=== PATIENT | female | born 1955 | race Caucasian/White ===

== ENCOUNTER → 2020-01-30 16:13 | Outpatient (BNVA) | payer BC, SELFPAY | PROVIDERS: Visit Provider Nurse Practitioner Family | DX: M25.521 Pain in right elbow (principal) | CPT/HCPCS: 73080 ==

== ENCOUNTER → 2020-02-06 10:06 | Outpatient (BNVA) | payer BC, SELFPAY | PROVIDERS: Visit Provider Nurse Practitioner Family | DX: E55.9 Vitamin D deficiency, unspecified (principal); E78.2 Mixed hyperlipidemia; I10 Essential (primary) hypertension; E53.8 Deficiency of other specified B group vitamins; Z86.39 Personal history of other endocrine, nutritional and metabolic disease | CPT/HCPCS: 80053; 80061; 81003; 82306; 82607; 82746; 83036; 84443; 84550; 85025 ==

== ENCOUNTER → 2020-02-13 09:07 | Outpatient (BNVA) | payer BC, SELFPAY | PROVIDERS: Visit Provider Nurse Practitioner Family | DX: R31.9 Hematuria, unspecified (principal) | CPT/HCPCS: 81003 ==

== ENCOUNTER → 2020-02-20 09:03 | Outpatient (BNVA) | payer BC, SELFPAY | PROVIDERS: Visit Provider Nurse Practitioner Family | DX: N39.0 Urinary tract infection, site not specified (principal); R31.9 Hematuria, unspecified | CPT/HCPCS: 81003 ==

== ENCOUNTER → 2020-02-27 09:16 | Outpatient (BNVA) | payer BC, SELFPAY | PROVIDERS: Visit Provider Nurse Practitioner Family | DX: N39.0 Urinary tract infection, site not specified (principal); R31.9 Hematuria, unspecified | CPT/HCPCS: 80053; 88112 ==

== ENCOUNTER → 2020-04-05 15:57 | Outpatient (BNVA) | payer BC, SELFPAY | PROVIDERS: Visit Provider Surgery | DX: Z20.828 Contact with and (suspected) exposure to other viral communicable diseases (principal) | CPT/HCPCS: 87635 ==

== ENCOUNTER 2020-04-10 08:15 | Day surgery (SDC) | payer BC, SELFPAY ==
[2020-04-08 09:51] VITALS: BMI 20.4
[2020-04-10 08:29] VITALS: BP 169/96; PULSE 81; RESP 18; TEMP 37.1; O2SAT 98
[2020-04-10] MEDS: sodium chloride 0.9% 1,000 ML 30 ML IV (08:43)
--- NOTE | 2020-04-10 10:18 | W.PM.OPSUD ---
Surgery/Procedure H&P Update DATE OF PROCEDURE: April 10, 2020 DATE H&P PERFORMED: 03/25/20 H&P UPDATE INFORMATION: I have reviewed H&P completed within last 30 days, I have examined patient prior to procedure and No changes to prior documentation PREOP DIAGNOSIS: Change in bowel habits PRIMARY INDICATION FOR PROCEDURE: The same PLANNED PROCEDURE: Operation Date: 04/10/20 09:00 Proposed Procedures p Colonoscopy 99748 R19.4(Not Applicable) - Hema Baltazar MD
--- NOTE | 2020-04-10 11:24 | ANES.PREANE2 ---
Pre-Anesthetic Assessment Pre-Anesthetic Assessment: Height/Weight: Height 1.63 m Weight 53.977 kg Temp Pulse Resp BP Pulse Ox 98.7 F 81 18 169/96 98 04/10/20 08:29 04/10/20 08:29 04/10/20 08:29 04/10/20 08:29 04/10/20 08:29 Preop Diagnosis: Change in bowel habits Proposed Procedure: Operation Date: 04/10/20 09:00 Proposed Procedures p Colonoscopy 84039 R19.4(Not Applicable) - Hema Baltazar MD Familial anesthetic complications: denies Was Beta Arianna taken within 24 hours: N/A Last intake: Intake Last Liquid Date 04/09/20 Last Liquid Time 22:00 Last Solid Date 04/08/20 Last Solid Time 18:00 Last Intake: 00:00 Social: Social History: Tobacco (1 ppd ) and No alcohol Pack years: 30 Exam: Pre-Anes Outpt Exam: alert, oriented x 3 and clear to auscultation bilaterally Airway: Submandibular: WNL Cervical ROM: WNL MP: 1 Pulmonary: Pulmonary: COPD CV/HEM: CV/HEM: Murmur (says she has a valve that regurg's 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 ) : Comments: blood in urine with no symptoms 1 month ago Hepatic: Hepatic: None reported GI: GI: None reported Metabolic: Comments: borderline hypoglycemia Musc/skel: Musc/skel: OA/DJD Neuropsych: Neuropsych: Anxiety (stress) Anesthetic Plan: ASA status: 2 Anesthesia: Anesthesia Evaluation and MAC Meds/Allergies Current Medications: Current Medications Generic Name Dose Route Start Last Admin Trade Name Riteshq PRN Reason Stop Dose Admin Sodium Chloride 1,000 mls @ 30 ml s/hr 04/10/20 08:30 04/10/20 08:43 Sodium Chloride 0.9% IV 04/11/20 08:29 30 mls/hr .Q24H RICCI Administration PFSH Anesthesia PFSH: Medical History B12 deficiency anemia Bursitis Essential hypertension H/O hypoglycemia H/O irritable bowel syndrome History of ulcer disease Mixed hyperlipidemia Urinary tract infection with hematuria Vitamin D deficiency Surgical History History of hysterectomy History of tubal ligation S/P cholecystectomy Family History Grandmother Cancer Mother Cancer Family/Other Cancer ovarian cancer Other Diabetes Denies family history of CAD (coronary artery disease) Anesthesia complication Bleeding disorder Social History Smoking and tobacco status: current every day smoker Alcohol intake: never Household members: spouse Marital status: Current occupational status: employed History of recent travel: No Data Anesthesia Cardiac Studies: No Data to Display
--- NOTE | 2020-04-10 11:49 | SUR.OPER ---
Clip placed at rectal polyp bx site
[2020-04-10 11:57] VITALS: BP 118/70; PULSE 81; RESP 16; TEMP 36.3; O2SAT 98
[2020-04-10 12:15] VITALS: BP 128/89; PULSE 85; RESP 18; O2SAT 99
--- NOTE | 2020-04-10 12:20 | ANE.PACU2 ---
Inpatient post-anesthesia follow up: Airway intact: Yes Vital signs: Temperature 97.3 F Pulse Rate 85 Respiratory Rate 18 Blood Pressure 128/89 Pulse Oximetry 99 Oxygen Delivery Me thod Room Air Oxygen Flow Rate Fraction of Inspir ed Oxygen Hydration adequate: Yes Nausea and vomiting: No Pain level: 1 Mental status: Baseline
== END 2020-04-10 12:23 | disposition home or self-care (01) ==
PROVIDERS: Visit Provider Surgery
PROC: 0DJD8ZZ Inspection of Lower Intestinal Tract, Via Natural or Artificial Opening Endoscopic (ICD-10-PCS; CPT 45378; principal; 2020-04-10 09:00)
DX: R19.4 Change in bowel habit (principal); D12.8 Benign neoplasm of rectum; J44.9 Chronic obstructive pulmonary disease, unspecified; M19.90 Unspecified osteoarthritis, unspecified site; F41.9 Anxiety disorder, unspecified; F17.210 Nicotine dependence, cigarettes, uncomplicated; I10 Essential (primary) hypertension; E78.2 Mixed hyperlipidemia
CPT/HCPCS: 12345; 45380; 88305; J2704; J7030

== ENCOUNTER → 2020-04-25 15:16 | Outpatient (BNVA) | payer BC, SELFPAY | PROVIDERS: Visit Provider Nurse Practitioner Family | DX: Z11.59 Encounter for screening for other viral diseases (principal) | CPT/HCPCS: 87635 ==

== ENCOUNTER → 2020-09-16 10:20 | Outpatient (BNVA) | payer SELFPAY | PROVIDERS: PCP Nurse Practitioner Family; Visit Provider Nurse Practitioner Family | DX: I10 Essential (primary) hypertension (principal); E78.2 Mixed hyperlipidemia; Z79.899 Other long term (current) drug therapy; E55.9 Vitamin D deficiency, unspecified | CPT/HCPCS: 80053; 80061; 81003; 82306; 83036; 84443; 85025 ==

== ENCOUNTER → 2020-09-17 11:13 | Outpatient (BNVA) | payer SELFPAY | PROVIDERS: PCP Nurse Practitioner Family; Visit Provider Nurse Practitioner Family | DX: K52.9 Noninfective gastroenteritis and colitis, unspecified (principal) | CPT/HCPCS: 83630; 87177; 87209; 87506 ==

== ENCOUNTER → 2020-10-14 09:23 | Outpatient (BNVA) | payer BC, SELFPAY | PROVIDERS: PCP Nurse Practitioner Family; Visit Provider Internal Medicine | DX: R10.9 Unspecified abdominal pain (principal); Z20.822 Contact with and (suspected) exposure to COVID-19; Z01.812 Encounter for preprocedural laboratory examination | CPT/HCPCS: 87635 ==

== ENCOUNTER 2020-10-18 08:49 | Day surgery (SDC) | payer BC, SELFPAY ==
[2020-10-17 10:43] VITALS: BMI 20.5
--- NOTE | 2020-10-18 09:31 | W.PM.OPSFHP ---
Same Day Surgery H&P Indication for Procedure/HPI DATE OF PROCEDURE: October 18, 2020 CHIEF COMPLAINT/INDICATIONFOR SURGICAL PROCEDURE: Abdominal bloating and cramping. PREOP DIAGNOSIS: Change in bowel habits PLANNED PROCEDRUE: Operation Date: 10/18/20 10:15 Proposed Procedures p EGD 27474 R10.9(Not Applicable) - Boom Choi MD Medications/Allergies* Home Medications Medication Instructions Recorded Confirmed Type naproxen sodium 220 mg capsule 220 mg PO BID PRN 01/30/20 10/17/20 History cyanocobalamin (vitamin B-12) 2,500 mcg SUBLINGUAL DAILY 04/10/20 10/17/20 History [Vitamin B-12] multivitamin 1 tab PO DAILY 04/10/20 10/17/20 History Allergies/Adverse Reactions Allergy/AdvReac Type Severity Reaction Status Date / Time No Known Allergies Allergy Verified 10/10/20 11:01 Pertinent History/Comorbid Conditions* Medical History (Updated 10/10/20 @ 11:28 by Boom Choi MD) Abdominal cramping B12 deficiency anemia Bursitis Chronic diarrhea Colon polyp Hyperplastic polyps Essential hypertension H/O hypoglycemia H/O irritable bowel syndrome History of ulcer disease Mixed hyperlipidemia Urinary tract infection with hematuria Vitamin D deficiency Surgical History (Updated 09/05/20 @ 19:50 by PATEL Lanier) H/O esophagogastroduodenoscopy late History of colonoscopy (~03/2020) History of hysterectomy History of tubal ligation S/P cholecystectomy Family History (Updated 03/25/20 @ 14:03 by Maite De La Cruz LPN) Diabetes Cancer Grandmother Mother Family/Other ovarian cancer Denies family history of CAD (coronary artery disease) Anesthesia complication Bleeding disorder Social History Smoking and tobacco status: current every day smoker Alcohol intake: never Household members: spouse Marital status: Current occupational status: employed History of recent travel: No Pertinent Exam Findings alert, oriented x 3, clear to auscultation bilaterally, regular rate & rhythm and procedure specific exam findings Recommendations Surgery/Procedure today Coding Level of Care Code Acute Elementary Esl Teacher for Jani Mcintosh
--- NOTE | 2020-10-18 09:43 | ANES.PREANE2 ---
Pre-Anesthetic Assessment Pre-Anesthetic Assessment: Height/Weight: Height 1.61 m Weight 53.524 kg Preop Diagnosis: t Proposed Procedure: Operation Date: 10/18/20 10:15 Proposed Procedures p EGD 51669 R10.9(Not Applicable) - Boom Choi MD Was Beta Arianna taken within 24 hours: N/A Was Clonidine taken within 24 hours: N/A Social: Social History: Tobacco and No alcohol Exam: Pre-Anes Outpt Exam: alert, oriented x 3 and regular rate & rhythm Airway: Submandibular: WNL Cervical ROM: WNL MP: 2 Dentition: Full CV/HEM: CV/HEM: Anemia and HTN GI: Comments: Chronic diarrhea Anesthetic Plan: ASA status: 3 Anesthesia: MAC Risk of > 500 ml blood loss (7ml/kg in children): No PFSH Anesthesia PFSH: Medical History Abdominal cramping B12 deficiency anemia Bursitis Chronic diarrhea Colon polyp Hyperplastic polyps Essential hypertension H/O hypoglycemia H/O irritable bowel syndrome History of ulcer disease Mixed hyperlipidemia Urinary tract infection with hematuria Vitamin D deficiency Surgical History H/O esophagogastroduodenoscopy late History of colonoscopy (~03/2020) History of hysterectomy History of tubal ligation S/P cholecystectomy Family History Grandmother Cancer Mother Cancer Family/Other Cancer ovarian cancer Other Diabetes Denies family history of CAD (coronary artery disease) Anesthesia complication Bleeding disorder Social History Smoking and tobacco status: current every day smoker Alcohol intake: never Household members: spouse Marital status: Current occupational status: employed History of recent travel: No Data Anesthesia Cardiac Studies: No Data to Display
[2020-10-18 09:50] VITALS: BP 168/83; PULSE 80; RESP 18; TEMP 36.4; O2SAT 98
[2020-10-18] MEDS: sodium chloride 0.9% 1,000 ML 30 ML IV (09:50)
--- NOTE | 2020-10-18 11:02 | ANE.PACU2 ---
Inpatient post-anesthesia follow up: Airway intact: Yes Vital signs: Temperature 97.5 F Pulse Rate 80 Respiratory Rate 18 Blood Pressure 168/83 Pulse Oximetry 98 Oxygen Delivery Me thod Room Air Oxygen Flow Rate Fraction of Inspir ed Oxygen Hydration adequate: Yes Nausea and vomiting: No Pain level: 1 Mental status: Baseline
[2020-10-18 11:08] VITALS: BP 121/80; PULSE 80; RESP 18; TEMP 36.6; O2SAT 97
[2020-10-18 11:11] VITALS: BP 135/87; PULSE 77; RESP 18; O2SAT 98
[2020-10-21 07:13] LABS: H. Pylori / CLO Test Negative
== END 2020-10-18 11:33 | disposition home or self-care (01) ==
PROVIDERS: PCP Nurse Practitioner Family; Visit Provider Internal Medicine
PROC: 0DJ08ZZ Inspection of Upper Intestinal Tract, Via Natural or Artificial Opening Endoscopic (ICD-10-PCS; CPT 43235; principal; 2020-10-18 10:15)
DX: K21.00 Gastro-esophageal reflux disease with esophagitis, without bleeding (principal); K29.71 Gastritis, unspecified, with bleeding; K25.9 Gastric ulcer, unspecified as acute or chronic, without hemorrhage or perforation; R19.4 Change in bowel habit; I10 Essential (primary) hypertension; E78.2 Mixed hyperlipidemia; Z87.11 Personal history of peptic ulcer disease; F17.210 Nicotine dependence, cigarettes, uncomplicated
CPT/HCPCS: 43239; 87077; 96360; J7030

== ENCOUNTER → 2021-02-24 11:31 | Outpatient (BNVA) | payer BC, SELFPAY | PROVIDERS: PCP Nurse Practitioner Family; Visit Provider Nurse Practitioner Family | DX: Z20.822 Contact with and (suspected) exposure to COVID-19 (principal) | CPT/HCPCS: 87635 ==

== ENCOUNTER 2021-02-28 07:40 | Outpatient (CLI) | payer BC, SELFPAY ==
[2021-02-28 07:59] VITALS: BP 190/92; PULSE 83; RESP 18; TEMP 36.7; O2SAT 99; BMI 21.2
[2021-02-28 08:22] VITALS: BP 156/97; PULSE 85; RESP 18; O2SAT 98
[2021-02-28 09:30] VITALS: BP 157/90; PULSE 71; RESP 16; TEMP 36.7; O2SAT 99
== END 2021-02-28 07:41 | disposition home or self-care (01) ==
LOC: OPS 07:41
PROVIDERS: PCP Nurse Practitioner Family; Visit Provider Nurse Practitioner Family
DX: U07.1 COVID-19 (principal)
CPT/HCPCS: 96365

== ENCOUNTER 2021-09-15 11:56 | Outpatient (CLI) | payer OTHER, SELFPAY ==
[2021-09-15 12:29] VITALS: BMI 21.9
--- NOTE | 2021-09-15 12:35 | ECG_ITS ---
[facility] Test Date: 2021-09-15 Pat Name: Virginia Bassett Department: Room: Gender: Female Traffic Technician: Lupe Fleming : 1955 Requested By: ADELAIDA Mario Order Number: [id number] Odonnell MD: Marci Bejarano M.D. Interpretive Statements NAME OF STUDY: TREADMILL STRESS TEST INDICATION: Chest pain,hx of hear valve surgery Baseline blood pressure of 158/105 mm Hg, heart rate of 96 beats per minute and oxygen saturation of 98%. EKG showed normal sinus rhythm, normal axis with nonspecific ST-T wave changes. The patient exercised for 4 minutes 41 seconds on a standard Kishan protocol. Patient attained a maximum heart rate of 179 beats per minute(114 % of the maximum predicted heart rate) with a blood pressure at the peak exercise of 213/103 mm Hg and oxygen saturation of 98%. The EKG at the peak exercise revealed sinus tachycardia with PACs with half to 1 mm horizontal to upsloping ST depression not meeting diagnostic criteria for ischemia. Patient did not have any chest pain or any significant arrhythmis with the exercise. During the recovery phase, there were no new changes. Blood pressure at the end of the recovery phase was 153/91 mm Hg with a heart rate of 97 beats per minute and oxygen saturation of 98%. CONCLUSION: 1. Normal EKG response to treadmill exercise. 2. No exercise-induced chest pain or cardiac arrhythmia. 3. Fair exercise tolerance, attained a maximum of 7 METs. Maximum VO2 of 24.5 mL/kg/min. 4. Baseline hypertension with hypertensive response to exercise. Electronically Signed On 09-16-2021 17:41:58 CDT by Marci Bejarano M.D. [id number]
[2021-09-15 12:59] VITALS: BP 153/91; PULSE 97
== END 2021-09-15 11:57 | disposition home or self-care (01) ==
LOC: CDL 12:09
PROVIDERS: PCP Nurse Practitioner Family; Visit Provider Nurse Practitioner Family
DX: I38 Endocarditis, valve unspecified (principal); R07.9 Chest pain, unspecified; I10 Essential (primary) hypertension
CPT/HCPCS: 93017

== ENCOUNTER → 2022-09-18 10:50 | Outpatient (BNVA) | payer OTHER, MEDICAID, SELFPAY | PROVIDERS: PCP Nurse Practitioner; Referring Provider Family Medicine; Visit Provider Student in an Organized Health Care Education/Training Program | DX: M70.62 Trochanteric bursitis, left hip (principal); M47.818 Spondylosis without myelopathy or radiculopathy, sacral and sacrococcygeal region | CPT/HCPCS: 20610; 73502; 99204; J3301; J3490 ==

== ENCOUNTER 2022-09-30 11:27 | Outpatient (CLI) | payer OTHER, MEDICAID, SELFPAY ==
--- NOTE | 2022-09-30 12:30 | CTR_ITS ---
PROCEDURE INFORMATION: Exam: CT Abdomen And Pelvis With Contrast Exam date and time: 09/30/2022 12:47 PM Age: 67 years old Clinical indication: Condition or disease; Intestinal condition; Patient HX: Diverticulitis with diarrhea, bloating for 1 year, and history of bleeding ulcers. History of hysterectomy, gall bladder, and colon polyp surgical procedures. ; Additional info: K57.92 - diverticulitis of intestine, part unspecified, w. . . TECHNIQUE: Imaging protocol: Computed tomography of the abdomen and pelvis with contrast. Radiation optimization: All CT scans at this facility use at least one of these dose optimization techniques: automated exposure control; mA and/or kV adjustment per patient size (includes targeted exams where dose is matched to clinical indication); or iterative reconstruction. Contrast material: OMNIPAQUE 350; Contrast volume: 95 ml; Contrast route: INTRAVENOUS (IV); REPORTING DATA: Count of CT and Cardiac NM exams in prior 12 months: This patient has received 0 known CTs and 0 known cardiac nuclear medicine studies in the 12 months prior to the current study. COMPARISON: CR XR hip LT 2-3V wo/w pel* [id number] 09/18/2022 10:50 AM RADIATION DOSE METRICS: Total DLP (mGy-cm): 267.8 FINDINGS: Liver: Normal. No mass. Gallbladder and bile ducts: Cholecystectomy. Mild prominence of the extrahepatic bile ducts which can be normal after cholecystectomy. Pancreas: Normal. No ductal dilation. Spleen: Normal. No splenomegaly. Adrenal glands: Normal. No mass. Kidneys and ureters: Normal. No hydronephrosis. Stomach and bowel: Mild sigmoid diverticulosis. No diverticulitis. No bowel obstruction or dilatation. Appendix: No evidence of appendicitis. Intraperitoneal space: Unremarkable. No free air. No significant fluid collection. Vasculature: Unremarkable. No abdominal aortic aneurysm. Lymph nodes: Unremarkable. No enlarged lymph nodes. Urinary bladder: Unremarkable as visualized. Reproductive: Hysterectomy. No adnexal masses. Bones/joints: Unremarkable. No acute fracture. Soft tissues: Unremarkable. CT/CT abdomen pelvis w con* [id number] IMPRESSION: No acute abnormality.
[2022-09-30] MEDS: iohexol 350 mg/mL 100 mL Btl PO (12:50)
[2022-09-30] MEDS: iohexol 350 mg/mL 100 mL Btl IV (12:51)
== END 2022-09-30 11:28 | disposition home or self-care (01) ==
PROVIDERS: PCP Nurse Practitioner; Visit Provider Family Medicine
DX: K57.92 Diverticulitis of intestine, part unspecified, without perforation or abscess without bleeding (principal); K91.5 Postcholecystectomy syndrome
CPT/HCPCS: 74177; 80048; Q9967

== ENCOUNTER 2023-02-02 14:45 | Emergency (ER) | payer OTHER, MEDICAID, SELFPAY ==
[2023-02-02] VITALS (10 sets, daily range): BP systolic 153–184; BP diastolic 58–114; PULSE 82–97; RESP 13–21; TEMP 36.6; O2SAT 95–99; BMI 23.8
--- NOTE | 2023-02-02 15:41 | ECG_ITS ---
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 Measurements Intervals [place] Rate: 89 P: 69 SC: 130 QRS: 41 QRSD: 75 T: 50 QT: 357 QTc: 436 Interpretive Statements SINUS RHYTHM LOW QRS VOLTAGE IN PRECORDIAL LEADS [QRS DEFLECTION < 1.0 mV IN CHEST LEADS] No previous ECG available for comparison Electronically Signed On 02-02-2023 17:42:44 CDT by Trevon Hinkle M.D. [id number]
--- NOTE | 2023-02-02 15:53 | ED_ITS ---
HPI - Dizziness General: Chief Complaint: Dizziness Stated Complaint: light headed Time Seen by Provider: 02/02/23 15:14 History of Present Illness: HPI Narrative: 67-year-old female is here with her sister who also assist with the history. She reports over the last 4 days she has been having problems with feeling dizzy and has noticed that her blood pressure has intermittently been high. When her blood pressure comes down her heart rate seems to go up. She reports she has been taking care of her and several other ill individuals. Her sister notes that she has been pushing herself pretty hard. She reports 3 to 4 days ago she started to nod off while she was driving. She does not really know why. It is unclear whether she was just overly fatigued or whether something else was going on. She has had some rhinorrhea that she relates to seasonal allergies. She had 1 episode of diarrhea yesterday which she reports is not unusual for her. She denies any abdominal pain, fevers, chills, sweats, chest pain, neck pain, arm pain, jaw pain, rashes, wounds, GI bleeding. She has not started or stopped any medications. As far she knows she does not have any hypertension, hyperlipidemia, diabetes, cholesterol, heart or lung issues. She reports she seems to get more dizzy with position changes. Her sister reports that she is frequently dehydrated. She has not had any focal neurologic deficits. She has not had any trouble with speech, motor function, sensory issues, visual problems. Her coordination has been normal so long as she is holding still. Associated symptoms: Denies chest pain, chills, headache(s), nausea, syncope or vomiting Associated neuro symptoms: Deny numbness in extremities Review of Systems General: Reports: 10 or more systems reviewed and unremarkable except in HPI a nd below Const: Denies: fever(s), chills or body aches Eyes: Denies: change in vision ENMT: Denies: throat pain Card: Denies: chest pain, edema or syncope Resp: Denies: dyspnea or productive cough GI: Denies: abdominal pain, nausea or vomiting : Denies: flank pain, dysuria or urinary frequency Musc: Denies: neck pain, back pain, extremity pain or extremity swelling Skin/Breast: Denies: rash or erythema Neuro: Denies: headache(s), numbness in extremities or weakness in extremities [facility] ED PFSH: Medical History Abdominal cramping B12 deficiency anemia Back pain Bursitis Chest pain Chronic diarrhea Colon polyp Hyperplastic polyps Environmental and seasonal allergies Essential hypertension H/O hypoglycemia H/O irritable bowel syndrome Heart valve disease History of ulcer disease Mixed hyperlipidemia Muscle spasm Tobacco dependence due to cigarettes Urinary tract infection with hematuria Vitamin D deficiency Surgical History H/O esophagogastroduodenoscopy late History of colonoscopy (~03/2020) History of hysterectomy History of tubal ligation S/P cholecystectomy Family History Grandmother Cancer Mother Cancer Family/Other Cancer ovarian cancer Other Diabetes Denies family history of CAD (coronary artery disease) Anesthesia complication Bleeding disorder Social History Smoking and tobacco status: current every day smoker Alcohol intake: never Substance/Drug Use: never Household members: spouse Marital status: Current occupational status: employed Physical Exam Const: COMMON NORMALS: patient oriented x3, no limitations, alert and well nourished EXAM LIMITATIONS: no altered mental status HENMT: COMMON NORMALS: normocephalic, atraumatic and external ears normal HEAD & SCALP: normocephalic and atraumatic EXTERNAL EAR: Yes external ears normal MOUTH: no muffled voice Eye: COMMON NORMALS: Equal, round and reactive pupils present, EOMs intact bilaterally, conjunctivae normal, no scleral icterus and normal visual hernandez by confrontation CONJUNCTIVA: Yes conjunctivae normal PUPIL: Yes Equal, round and reactive pupils present OTHER: Hints exam was performed. It was unremarkable. We did not have any signs of peripheral or central vertigo Neck/C-Spine: COMMON NORMALS: no JVD GENERAL: Yes normal visual inspection and Yes trachea midline Resp: COMMON NORMALS: normal respiratory effort, No use of accessory muscles and clear to auscultation bilaterally AUSCULTATION: clear to auscultation bilaterally Cardio: COMMON NORMALS: no JVD, regular rate and regular rhythm RATE: regular rate RHYTHM: regular rhythm GI: COMMON NORMALS: Soft to palpation and non-tender PALPATION: Yes Soft to palpation and No Guarding due to palpation present (GI) Extremity: COMMON NORMALS: normal to inspection Neuro: COMMON NORMALS: patient oriented x3, CN's II-XII intact bilaterally, moves all extremities, no focal motor deficits and no sensory deficits noted SENSORIUM/ORIENTATION: Yes alert COORDINATION/BALANCE: [id number] test normal, Normal rapid alternating movements of the distal upper extremity present (Neuro) and Normal rapid alternating movements of the distal lower extremity present (Neuro) SPEECH: speech normal COORDINATION: [id number] test normal, rapid alternating movement UE normal and rapid alternating movement LE normal Psych: COMMON NORMALS: mental status grossly normal, Normal thought process present, cooperative, normal affect and speech normal SPEECH: Yes normal speech THOUGHT PROCESS: Normal thought process present Skin: COMMON NORMALS: no rashes or lesions noted, turgor normal and no jaundice GENERAL SKIN EXAM: no rashes or lesions noted and turgor normal Course Vital Signs: Vital signs: Vital Signs Temperature 97.9 F 02/02/23 14:55 Pulse Rate 92 02/02/23 18:30 Respiratory Rate 13 02/02/23 15:28 Blood Pressure 155/58 02/02/23 18:30 Pulse Oximetry 97 02/02/23 18:30 Oxygen Delivery Me thod Room Air 02/02/23 18:30 MDM - Dizziness Medical Decision Making Patient presents with nonspecific symptoms. Large differential diagnosis including caregiver fatigue, new onset hypertension, thyroid abnormality, glycemic abnormalities, intermittent arrhythmia, dehydration, renal failure, poor sleep, TIA, vertigo, COVID, UTI, other infectious etiology, and multiple others. Update Patient's laboratory work-up was remarkable for positive COVID test, low TSH. Free T4 and free T3 are pending. Update After waiting for several hours for the results of the T3 and T4. I called the lab to inquire why there was such a long delay. They report that the analyzer's are down. They had not inform me of this so I was awaiting disposition. I will go ahead and start the patient on propanolol 10 mg p.o. 3 times daily with hold parameters. Follow-up with nurse practitioner tomorrow to get the results and if the free T3 and T4 are within the normal range, may consider stopping propanolol and doing further testing. Patient is not a candidate for Paxlovid as it has been nearly 5 days and she does not have any significant risk factors for progression to severe disease. Lab Data 02/02/23 15:16 02/02/23 15:16 Laboratory Results WBC 6.9 10^3/uL (4.0-10.0) 02/02/23 15:16 RBC 4.07 10^6/uL (4.1-5.3) L 02/02/23 15:16 Hgb 14.5 g/dL (11.5-15.3) 02/02/23 15:16 Hct 42.5 % (37.0-47.0) 02/02/23 15:16 MCV 104.4 fl (81-99) H 02/02/23 15:16 MCH 35.6 pg (28.0-34.0) H 02/02/23 15:16 MCHC 34.1 g/dL (30.0-36.0) 02/02/23 15:16 RDW 12.4 % (12.1-15.1) 02/02/23 15:16 Plt Count 310 10^3/cmm (130-400) 02/02/23 15:16 MPV 9.6 fL (7.4-10.4) 02/02/23 15:16 Neut % (Auto) 64.8 % 02/02/23 15:16 Lymph % (Auto) 18.2 % 02/02/23 15:16 [place] % (Auto) 15.7 % 02/02/23 15:16 Eos % (Auto) 0.0 % 02/02/23 15:16 Baso % (Auto) 0.6 % 02/02/23 15:16 Neut # (Auto) 4.46 10^3/uL (1.8-7.7) 02/02/23 15:16 Lymph # (Auto) 1.3 10^3/uL (0.8-4.8) 02/02/23 15:16 [place] # (Auto) 1.1 10^3/uL (0.2-0.9) H 02/02/23 15:16 Eos # (Auto) 0.0 10^3/uL (0.0-0.8) 02/02/23 15:16 Baso # (Auto) 0.0 10^3/uL (0.0-0.1) 02/02/23 15:16 Nucleated RBC % (auto) 0 % 02/02/23 15:16 Nucleated RBCs # 0.0 /100WBC 02/02/23 15:16 Sodium 140 mmol/L (136-145) 02/02/23 15:16 Potassium 3.7 mmol/L (3.5-5.1) 02/02/23 15:16 Chloride 104 mmol/L (98-107) 02/02/23 15:16 Carbon Dioxide 24 mmol/L (22-29) 02/02/23 15:16 Anion Gap 15.7 (5-19) 02/02/23 15:16 BUN 10 mg/dL (8-23) 02/02/23 15:16 Creatinine 0.7 mg/dL (0.5-0.9) 02/02/23 15:16 GFR Calculation 84.0 mL/min (90-130) L 02/02/23 15:16 Glucose 107 mg/dL (65-115) 02/02/23 15:16 Calculated Osmolality 290 mOsm/kg (285-295) 02/02/23 15:16 Calcium 8.9 mg/dL (8.5-10.5) 02/02/23 15:16 Magnesium 1.9 mg/dL (1.7-2.3) 02/02/23 15:16 Total Bilirubin 0.2 mg/dL (0.15-1.2) 02/02/23 15:16 AST 19 U/L (0-32) 02/02/23 15:16 ALT 11 U/L (0-33) 02/02/23 15:16 Alkaline Phosphatase 80 U/L (35-105) 02/02/23 15:16 Troponin T Gen 5 ng/L 11 ng/L (0-10) H 02/02/23 15:16 Total Protein 6.6 g/dL (6.6-8.7) 02/02/23 15:16 Albumin 4.4 g/dL (3.5-5.2) 02/02/23 15:16 Globulin 2.2 g/dL (1.3-4.6) 02/02/23 15:16 TSH 0.21 uIU/mL (0.27-4.20) L 02/02/23 15:16 Urine Color Yellow (Yellow) 02/02/23 16:40 Urine Appearance Clear (CLEAR) 02/02/23 16:40 Urine pH 6 (5-7) 02/02/23 16:40 Ur Specific [place] 1.005 (1.005-1.030) 02/02/23 16:40 Urine Protein Neg (Negative) 02/02/23 16:40 Urine Glucose (UA) Norm (Normal) 02/02/23 16:40 Urine Ketones Negative (Negative) 02/02/23 16:40 Urine Blood 3+ (Negative) H 02/02/23 16:40 Urine Nitrate Negative (Negative) 02/02/23 16:40 Urine Bilirubin Neg (Negative) 02/02/23 16:40 Urine Urobilinogen Norm mg/dL (Negative) 02/02/23 16:40 Ur Leukocyte Esterase Negative (Negative) 02/02/23 16:40 Urine RBC 0-4 /hpf (0-2) H 02/02/23 16:40 Urine WBC 0-4 /hpf (0-5) H 02/02/23 16:40 Ur Squamous Epith Cells 0-4 /hpf (0-5) H 02/02/23 16:40 Amorphous Sediment Not Reportable 02/02/23 16:40 Urine Bacteria Trace /hpf (NONE) 02/02/23 16:40 SARS-CoV-2 Ag (Rapid) positive (Negative) 02/02/23 15:55 Discharge Plan Discharge Patient Disposition: Home Clinical Impression: COVID-19, Low TSH level Condition: Stable Prescriptions: New propranolol 10 mg tablet 10 mg PO TID Qty: 15 0RF Rx Instructions: Hold for Heart Rate <60 beats per minute or Systolic blood pressure <120 mmHg No Action pantoprazole 40 mg tablet,delayed release (DR/EC) 40 mg PO BID Qty: 180 1RF Rx Instructions: 340 b cyanocobalamin (vitamin B-12) 1,000 mcg/mL solution 1,000 mcg SUBCUT ONCE Qty: 1 0RF cholestyramine (with sugar) 4 gram powder 4 g PO DAILY Qty: 378 6RF Rx Instructions: administer w/meal; avoid other meds within 1hr before or 4-6hr after dose gabapentin 300 mg capsule 300 mg PO Q8H 90 Days Qty: 270 0RF cholecalciferol (vitamin D3) 1,250 mcg (50,000 unit) capsule 50,000 unit PO .weekly 30 Days Qty: 4 2RF duloxetine 60 mg capsule,delayed release(DR/EC) See Rx Instructions .ROUTE .COMPLEX Qty: 90 0RF Dose Instruction: TAKE 1 CAPSULE BY MOUTH EVERY DAY Rx Instructions: TAKE 1 CAPSULE BY MOUTH EVERY DAY levocetirizine [Xyzal] 5 mg tablet 5 mg PO .nightly PRN (Reason: allergy symptoms) 30 Days Qty: 30 5RF cyclobenzaprine 10 mg tablet 10 mg PO QAM 30 Days Qty: 30 0RF hydroxyzine HCl 25 mg tablet 25 mg PO TID PRN (Reason: itching) Qty: 60 1RF multivitamin Tablet 1 tab PO DAILY Discharge Orders: Discharge ED (Routine); Ordered 02/02/23 Ordered By: Fletcher Morrell Referrals: Sylvia Multani FNP [Primary Care Provider] - 1-3 days (CAll Sylvia to discuss your TSH results. You will need to follow-up on Free T4 and Free T3 levels as the analyzer was down today.) Discharge Diet: Usual diet Discharge Activity: Resume usual activity Patient Instructions: Hyperthyroidism (ED), COVID-19 (Coronavirus Disease 2019) (ED), Opioid Safety, Pain Management Activity Restrictions/Additional Instructions: Call Sylvia JEWELRY COATER to discuss your TSH results. You will need to follow-up on Free T4 and Free T3 levels as the analyzer was down today. Take propanolol 10 mg p.o. 3 times daily. Hold if your heart rate is less than 60 or your systolic blood pressure is less than 120. This is to control your heart rate and blood pressure as we believe that you have hyperthyroidism. 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
[2023-02-02] MEDS: cloNIDine 0.1 mg Tablet PO (15:54)
[2023-02-02] MEDS: sodium chloride 0.9% 1,000 ML 999 ML IV (15:55)
[2023-02-02 16:01] LABS: Basophils % 0.6 %; Hematocrit 42.5 % (37.0-47.0); Hemoglobin 14.5 g/dL (11.5-15.3); Lymphocytes # 1.3 10^3/uL (0.8-4.8); Lymphocytes % 18.2 %; Mean Corpuscular HGB Conc 34.1 g/dL (30.0-36.0); Mean Corpuscular Hemoglobin 35.6 pg (28.0-34.0); Mean Corpuscular Volume 104.4 fl (81-99); Mean Platelet Volume 9.6 fL (7.4-10.4); Monocytes # 1.1 10^3/uL (0.2-0.9); Monocytes % 15.7 %; Neutrophils # 4.46 10^3/uL (1.8-7.7); Neutrophils % 64.8 %; Nucleated Red Blood Cells % 0 %; Platelet Count 310 10^3/cmm (130-400); Red Blood Count 4.07 10^6/uL (4.1-5.3); Red Cell Distribution Width 12.4 % (12.1-15.1); White Blood Count 6.9 10^3/uL (4.0-10.0)
[2023-02-02 16:10] LABS: Troponin T (5th) Once 11 ng/L (0-10)
[2023-02-02 16:17] LABS: Alanine Aminotransferase 11 U/L (0-33); Albumin Level 4.4 g/dL (3.5-5.2); Alkaline Phosphatase 80 U/L (35-105); Anion Gap 15.7 (5-19); Aspartate Amino Transferase 19 U/L (0-32); Blood Urea Nitrogen 10 mg/dL (8-23); Calcium 8.9 mg/dL (8.5-10.5); Carbon Dioxide 24 mmol/L (22-29); Chloride 104 mmol/L (98-107); Creatinine Clr Calc Pharmacy 59.3747; Globulin 2.2 g/dL (1.3-4.6); Glucose 107 mg/dL (65-115); Magnesium 1.9 mg/dL (1.7-2.3); Osmolality Calculated 290 mOsm/kg (285-295); Potassium 3.7 mmol/L (3.5-5.1); Sodium 140 mmol/L (136-145); Thyroid Stimulating Hormone 0.21 uIU/mL (0.27-4.20); Total Bilirubin 0.2 mg/dL (0.15-1.2); Total Protein 6.6 g/dL (6.6-8.7)
[2023-02-02 16:29] LABS: SARS Covid-2 Antigen positive (Negative)
[2023-02-02 17:11] LABS: Specific Gravity, Urine 1.005 (1.005-1.030); Urine Appearance Clear (CLEAR); Urine Color Yellow (Yellow); pH Urine 6 (5-7)
[2023-02-02 17:12] LABS: Add Urine Microscopic? YES; Bilirubin Urine Neg (Negative); Blood Urine 3+ (Negative); Glucose Urine UA Norm (Normal); Ketones Urine Negative (Negative); Leukocyte Esterase Urine Negative (Negative); Nitrate Urine Negative (Negative); Protein Urine Neg (Negative); RBC Urine 0-4 /hpf (0-2); Squamous Epithelial Cell Urine 0-4 /hpf (0-5); Urobilinogen Urine Norm (Negative); WBC Urine 0-4 /hpf (0-5)
[2023-02-02 17:13] LABS: Add Urine Culture? No; Bacteria Urine TRACE /hpf
[2023-02-02] MEDS: propranolol 20 mg Tablet 10 MG PO (19:21)
[2023-02-02 20:06] LABS: Free T4 Free Thyroxine 1.26 ng/dL (0.82-1.77); T3 Free 2.1 PG/ML (2.0-4.4)
== END 2023-02-02 19:30 | disposition home or self-care (01) ==
PROVIDERS: Emergency Provider Emergency Medicine; PCP Nurse Practitioner
DX: U07.1 COVID-19 (principal); R79.9 Abnormal finding of blood chemistry, unspecified; I10 Essential (primary) hypertension; E78.2 Mixed hyperlipidemia; F17.200 Nicotine dependence, unspecified, uncomplicated; Z79.899 Other long term (current) drug therapy
CPT/HCPCS: 80053; 81001; 83735; 84439; 84443; 84481; 84484; 85025; 87426; 93005; 96360; 96361; 99284; J7030

== ENCOUNTER → 2023-02-09 11:35 | Outpatient (BNVA) | payer OTHER, MEDICAID, SELFPAY | PROVIDERS: PCP Nurse Practitioner; Visit Provider Nurse Practitioner | DX: R53.83 Other fatigue (principal) | CPT/HCPCS: 86000; 86618; 86666; 86757 ==

== ENCOUNTER → 2023-04-21 13:39 | Outpatient (BNVA) | payer OTHER, MEDICAID, SELFPAY | PROVIDERS: PCP Nurse Practitioner; Visit Provider Nurse Practitioner Family | DX: I10 Essential (primary) hypertension (principal); R07.9 Chest pain, unspecified; E55.9 Vitamin D deficiency, unspecified; D51.9 Vitamin B12 deficiency anemia, unspecified; Z79.899 Other long term (current) drug therapy; E78.2 Mixed hyperlipidemia; R07.89 Other chest pain | CPT/HCPCS: 80053; 80061; 81003; 82306; 82607; 82746; 83036; 84439; 84443; 84481; 85025; 87086; 88112; 93005 ==

== ENCOUNTER → 2023-04-27 15:02 | Outpatient (BNVA) | payer OTHER, MEDICAID, SELFPAY | PROVIDERS: PCP Nurse Practitioner; Visit Provider Student in an Organized Health Care Education/Training Program | DX: M70.61 Trochanteric bursitis, right hip | CPT/HCPCS: 73502 ==

== ENCOUNTER → 2023-06-14 14:04 | Outpatient (BNVA) | payer OTHER, MEDICAID, SELFPAY | PROVIDERS: PCP Nurse Practitioner; Visit Provider Nurse Practitioner Family | DX: D53.9 Nutritional anemia, unspecified (principal); R31.9 Hematuria, unspecified; I10 Essential (primary) hypertension; M19.90 Unspecified osteoarthritis, unspecified site | CPT/HCPCS: 80053; 81003; 82570; 82607; 82746; 83921; 84156; 85025; 85045; 86038; 87086 ==

== ENCOUNTER → 2023-06-15 15:53 | Outpatient (BNVA) | payer OTHER, MEDICAID, SELFPAY | PROVIDERS: PCP Nurse Practitioner; Visit Provider Nurse Practitioner Family | DX: D53.9 Nutritional anemia, unspecified (principal); R31.9 Hematuria, unspecified; I10 Essential (primary) hypertension; M19.90 Unspecified osteoarthritis, unspecified site | CPT/HCPCS: 80503 ==

== ENCOUNTER → 2023-08-26 13:38 | Outpatient (BNVA) | payer OTHER, MEDICAID, SELFPAY | PROVIDERS: PCP Nurse Practitioner; Visit Provider Student in an Organized Health Care Education/Training Program | DX: M70.62 Trochanteric bursitis, left hip (principal) | CPT/HCPCS: 73502 ==

== ENCOUNTER → 2023-11-30 10:46 | Outpatient (BNVA) | payer MEDICARE, MEDICAID, SELFPAY | PROVIDERS: PCP Nurse Practitioner; Visit Provider Student in an Organized Health Care Education/Training Program | DX: M70.62 Trochanteric bursitis, left hip (principal) | CPT/HCPCS: 99213 ==

== ENCOUNTER → 2024-01-25 11:30 | Outpatient (BNVA) | payer MEDICARE, MEDICAID, SELFPAY | PROVIDERS: PCP Nurse Practitioner; Visit Provider Nurse Practitioner Family | DX: J44.1 Chronic obstructive pulmonary disease with (acute) exacerbation (principal); M41.9 Scoliosis, unspecified; M40.209 Unspecified kyphosis, site unspecified | CPT/HCPCS: 71046 ==

== ENCOUNTER 2024-02-02 13:30 | Outpatient (CLI) | payer MEDICARE, MEDICAID, SELFPAY ==
--- NOTE | 2024-02-02 14:00 | CT_ITS ---
WS: [id number] CT chest wo con [id number] HISTORY: R91.1 - Solitary pulmonary nodule TECHNIQUE: Axial imaging performed through the thorax. Coronal and sagittal reformats are submitted. All CT scans at [facility] use at least one of these dose optimization techniques: automated exposure control; mA and/or kV adjustment per patient size (includes targeted exams where dose is mat ched to clinical indication); or iterative reconstruction. CONTRAST: None DLP: 226.05 mGy.cm COMPARISON: CT 09/30/2022, chest radiograph 01/25/2024 Lungs and central airway: Mild biapical pleural thickening and scarring. No pulmonary mass or pneumon ia. No nodules. There is no nodule at the LEFT lung base. Pleura: Normal. No pleural effusion. Heart and pericardium: Heart is top normal size. There is a small pericardial effusion measuring up t o 8 mm in diameter. Effusion does appear slightly more prominent as compared to 09/30/2022. Mediastinum and shara: Small mediastinal and hilar lymph nodes. No adenopathy. Vessels: Mild atherosclerosis aorta. Chest wall and lower neck: No soft tissue masses. Upper abdomen: Prior cholecystectomy. No adrenal mass. Osseous structures: Moderate increase in thoracic kyphosis. CT/CT chest wo con [id number] IMPRESSION: 1. No pulmonary mass or nodule. No nodule at the LEFT lung base. 2. Small circumferential pericardial effusion measures 8 mm in diameter. Effus ion has increased in size since 09/30/2022. 3. No pleural effusions. 4. Prior cholecystectomy.
== END 2024-02-02 13:31 | disposition home or self-care (01) ==
LOC: RAD 13:31
PROVIDERS: PCP Nurse Practitioner Family; Visit Provider Nurse Practitioner Family
DX: R91.1 Solitary pulmonary nodule (principal); I31.39 Other pericardial effusion (noninflammatory); F17.200 Nicotine dependence, unspecified, uncomplicated; Z90.49 Acquired absence of other specified parts of digestive tract
CPT/HCPCS: 71250

== ENCOUNTER → 2024-03-07 09:23 | Outpatient (BNVA) | payer MEDICARE, MEDICAID, SELFPAY | PROVIDERS: PCP Nurse Practitioner Family; Visit Provider Student in an Organized Health Care Education/Training Program | DX: M70.62 Trochanteric bursitis, left hip (principal) | CPT/HCPCS: 20610; 99213; J3301; J3490 ==

== ENCOUNTER 2024-03-10 12:33 | Emergency (ER) | payer MEDICARE, MEDICAID, SELFPAY ==
[2024-03-10] VITALS (12 sets, daily range): BP systolic 114–237; BP diastolic 55–122; PULSE 63–89; RESP 17; TEMP 36.8; O2SAT 97–100; BMI 23.9
--- NOTE | 2024-03-10 12:46 | XR_ITS ---
WS: [id number] XR chest 1V portable [id number] REASON FOR EXAM: dyspnea/cough FINDINGS: Chest is unchanged compared to 01/25/2024. Mild tortuosity of the thoracic aorta. The heart is mildly enlarged. No acute pulmonary parenchymal or pleural abnormality is noted. Bony thorax intact. XR/XR chest 1V portable [id number] IMPRESSION: Stable chest with mild cardiomegaly.
--- NOTE | 2024-03-10 12:47 | ECG_ITS ---
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 Measurements Intervals [place] Rate: 70 P: 62 NH: 132 QRS: 65 QRSD: 78 T: 56 QT: 392 QTc: 423 Interpretive Statements SINUS RHYTHM Compared to ECG 03/10/2024 13:58:38 No significant changes Electronically Signed On 03-10-2024 16:51:10 CDT by Enrique Michaud M.D. [email or web address]
[2024-03-10 13:37] LABS: Basophils % 0.2 %; Hematocrit 46.9 % (36-47); Lymphocytes # 2.2 10^3/uL (0.8-4.8); Lymphocytes % 15.6 %; Mean Corpuscular Hemoglobin 34.6 pg (27-33); Mean Corpuscular Volume 104.7 fl (85-98); Mean Platelet Volume 11.1 fL (7.4-10.4); Monocytes # 1.2 10^3/uL (0.2-0.9); Monocytes % 8.5 %; Neutrophils # 10.65 10^3/uL (1.8-7.7); Neutrophils % 75.1 %; Nucleated Red Blood Cells % 0 %; Platelet Count 333 10^3/cmm (157-399); Red Blood Count 4.48 10^6/uL (3.85-5.65); Red Cell Distribution Width 12.4 % (12.1-15.1)
--- NOTE | 2024-03-10 13:37 | CT_ITS ---
WS: [id number] CT HEAD TECHNIQUE: Noncontrast CT of the head obtained from the skullbase to the vertex. CLINICAL INFORMATION: elevated BP, headache COMPARISON: None. DLP: 959.[address] scans at [facility] use at least one of these dose optimization techniques: automated e xposure control; mA and/or kV adjustment per patient size (includes targeted exams where dose is matc hed to clinical indication); or iterative reconstruction. FINDINGS: No evidence of intracranial hemorrhage or mass effect. Ventricular system and basal cisterns are phillips nt. Mild small vessel changes with mild parenchymal volume loss. No extra-axial fluid collections. No evidence of mass or mass effect. Normal vick-white differentiation. Paranasal sinuses and mastoid air cells are well aerated. .Normal visualized soft tissues. CT/CT head wo con* [id number] IMPRESSION: 1. No evidence of intracranial hemorrhage or mass effect. 2. No acute intracranial findings.
[2024-03-10 13:58] LABS: Alanine Aminotransferase 8 U/L (0-33); Albumin Level 4.8 g/dL (3.5-5.2); Alkaline Phosphatase 104 U/L (35-105); Anion Gap 20.9 (5-19); Aspartate Amino Transferase 15 U/L (0-32); Blood Urea Nitrogen 19 mg/dL (8-23); Calcium 9.4 mg/dL (8.5-10.5); Carbon Dioxide 21 mmol/L (22-29); Chloride 103 mmol/L (98-107); Creatinine Clr Calc Pharmacy 61.0807; Globulin 2.5 g/dL (1.3-4.6); Glomerular Filtration Rate 83.7 mL/min (90-130); Glucose 99 mg/dL (65-115); Osmolality Calculated 294 mOsm/kg (285-295); Potassium 3.9 mmol/L (3.5-5.1); Sodium 141 mmol/L (136-145); Total Bilirubin 0.5 mg/dL (0.15-1.2); Total Protein 7.3 g/dL (6.6-8.7); Troponin(5th) Baseline < 6 ng/L (0-10)
--- NOTE | 2024-03-10 13:58 | ECG_ITS ---
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 Measurements Intervals [place] Rate: 60 P: 67 ID: [id number] QRS: 45 QRSD: 69 T: 48 QT: 403 QTc: 404 Interpretive Statements SINUS RHYTHM Compared to ECG 02/02/2023 16:14:14 No significant changes Electronically Signed On 03-10-2024 16:55:51 CDT by Enrique Michaud M.D. [email or web address]
--- NOTE | 2024-03-10 14:05 | W.ED.DIZZY ---
HPI - Dizziness General: Chief Complaint: Dizziness Stated Complaint: htn, headache Time Seen by Provider: 03/10/24 12:45 History of Present Illness: HPI Narrative: 68-year-old female presents emergency room complaining of elevated blood pressure. He states it normal and she says when she is up and walking then her blood pressure gets worse. She denies any chest pain. She is complaining of a headache states she has appointment with manage mention to her nurses that She recently lost her . Associated symptoms: Denies chest pain or chills Related Data Home Medications Medication Instructions Recorded Confirmed multivitamin 1 tab PO DAILY 04/10/20 03/07/24 acetaminophen 650 mg/20.3 mL oral 650 mg PO Q6H PRN 03/10/24 03/10/24 solution aspirin 81 mg chewable tablet 81 mg PO DAILY 03/10/24 03/10/24 baclofen 5 mg tablet 5 mg PO TID 03/10/24 Previous Rx's Medication Instructions Recorded cholecalciferol (vitamin D3) 1,250 50,000 unit PO .weekly 30 days #4 02/07/20 mcg (50,000 unit) capsule caps cholestyramine (with sugar) 4 gram 4 g PO DAILY #378 grams 11/18/21 oral powder cyanocobalamin (vitamin B-12) 1,000 mcg SUBCUT ONCE #1 mL 01/28/23 1,000 mcg/mL injection solution atorvastatin 40 mg tablet 40 mg PO DAILY 90 days #90 tabs 06/08/23 gabapentin 300 mg capsule 300 mg PO Q8H 90 days #270 caps 07/14/23 pantoprazole 40 mg tablet,delayed 40 mg PO BID #180 tabs 01/04/24 release solifenacin 5 mg tablet (Vesicare) 5 mg PO DAILY 30 days #30 tabs 01/18/24 meloxicam 7.5 mg tablet 7.5 mg PO DAILY 30 days #60 tabs 01/25/24 levocetirizine 5 mg tablet (Xyzal) 5 mg PO .nightly PRN allergy 02/22/24 symptoms 90 days #90 tabs amlodipine 5 mg tablet 5 mg PO DAILY #30 tabs 03/10/24 buspirone 7.5 mg tablet 7.5 mg PO BID #60 tabs 03/10/24 metoprolol succinate 50 mg 50 mg PO DAILY #30 tabs 03/10/24 tablet,extended release 24 hr (Toprol XL) telmisartan 80 mg tablet 80 mg PO DAILY #30 tabs 03/10/24 Allergies Allergy/AdvReac Type Severity Reaction Status Date / Time No Known Allergies Allergy Verified 03/10/24 10:23 Review of Systems Const: Denies: fever(s) or chills Card: Denies: chest pain Resp: Denies: dyspnea GI: Denies: abdominal pain : Denies: dysuria, urinary frequency or urinary urgency Musc: Denies: neck pain or back pain Skin/Breast: Denies: rash PFSH ED PFSH: Medical History (Updated 03/10/24 @ 16:34 by Roderick Murillo DO) Essential hypertension Current every day smoker Nodule of left lung Cough Enrolled in chronic care management Degenerative joint disease of both hips DDD (degenerative disc disease), lumbar COPD exacerbation Multiple joint pain Positive CLINT (antinuclear antibody) Acute bacterial sinusitis Hematuria Macrocytic anemia Urinary incontinence Vertebral artery occlusion Recurrent hematuria Medication management Chest pain Heart valve disease Muscle spasm Back pain Environmental and seasonal allergies Tobacco dependence due to cigarettes Abdominal cramping Chronic diarrhea Colon polyp Hyperplastic polyps Urinary tract infection with hematuria Mixed hyperlipidemia Vitamin D deficiency Essential hypertension History of ulcer disease H/O irritable bowel syndrome H/O hypoglycemia Bursitis B12 deficiency anemia Surgical History H/O esophagogastroduodenoscopy late History of colonoscopy (~03/2020) S/P cholecystectomy History of hysterectomy History of tubal ligation Family History Grandmother Cancer Mother Cancer Family/Other Cancer ovarian cancer Other Diabetes Denies family history of CAD (coronary artery disease) Anesthesia complication Bleeding disorder Social History Smoking and tobacco/nicotine status: current every day tobacco/nicotine user Alcohol intake: never Substance/Drug Use: never Household members: spouse Marital status: Current occupational status: employed Physical Exam Const: COMMON NORMALS: no acute distress GENERAL APPEARANCE: cooperative and comfortable ORIENTATION/CONSCIOUSNESS: Yes awake, Yes oriented to person, Yes oriented to place and Yes oriented to time HENMT: COMMON NORMALS: normocephalic, atraumatic and hearing grossly normal bilaterally HEAD & SCALP: normocephalic and atraumatic Resp: COMMON NORMALS: normal respiratory effort, No retractions, No use of accessory muscles and clear to auscultation bilaterally AUSCULTATION: clear to auscultation bilaterally Cardio: COMMON NORMALS: regular rate, regular rhythm and No murmurs present (Cardio) RATE: regular rate RHYTHM: regular rhythm GI: COMMON NORMALS: Soft to palpation and No hepatosplenomegaly present AUSCULTATION: Yes normoactive bowel sounds PALPATION: Yes Soft to palpation, No Tenderness to palpation present (GI), No Guarding due to palpation present (GI) and Yes No hepatosplenomegaly present Extremity: COMMON NORMALS: normal to inspection, capillary refill normal, no clubbing, cyanosis or edema, no calf tenderness and no pedal edema Neuro: SENSORIUM/ORIENTATION: Yes oriented to person, Yes oriented to place and Yes oriented to time Skin: COMMON NORMALS: no rashes or lesions noted GENERAL SKIN EXAM: no rashes or lesions noted Course Vital Signs: Vital signs: Vital Signs Temperature 98.3 F 03/10/24 12:35 Pulse Rate 73 03/10/24 16:00 Respiratory Rate 17 03/10/24 12:35 Blood Pressure 139/75 03/10/24 16:00 Pulse Oximetry 99 03/10/24 16:00 Oxygen Delivery Me thod Room Air 03/10/24 16:00 MDM - Dizziness Medical Decision Making CT of the head is negative. . Chest x-ray shows cardiomegaly but is stable. Remainder of her labs are unremarkable it is mild elevation of her white count but clinically there is no sign of infection at this time she has no fever. Initial blood pressure was elevated she was given labetalol and hydralazine it did improve she became suddenly very hypertensive in conjunction with rapid breathing typical for hyperventilation. ABG showed patient was indeed hyperventilating and decrease her CO2 significantly. We did not give her any further antihypertensive after this we did give her Ativan. Her blood pressure normalized completely and she is resting comfortably she has been no focal neurologic deficits. Reviewed labs and imaging. Discussed with her as well. Suspect she does have some underlying hypertension this is exacerbated by anxiety issues. Will start her on BuSpar 7.5 twice daily. Additionally to avoid rebound hypertension stop the hydralazine. Increase your telmisartan to 80 mg daily change her from metoprolol to tartrate to metoprolol succinate 50 mg once daily and add amlodipine 5 mg daily. Follow-up with her primary care doctor in 1 week. Medical Records I reviewed the patient's medical records. Lab Data I reviewed the patient's lab results. 03/10/24 12:42 03/10/24 12:42 Radiology Impressions Chest X-Ray 03/10/24 12:46 IMPRESSION: Stable chest with mild cardiomegaly. Head CT 03/10/24 13:37 IMPRESSION: 1. No evidence of intracranial hemorrhage or mass effect. 2. No acute intracranial findings. Laboratory Results WBC 14.20 10^3/uL (3.29-11.43) H 03/10/24 12:42 RBC 4.48 10^6/uL (3.85-5.65) 03/10/24 12:42 Hgb 15.50 g/dL (11.27-16.99) 03/10/24 12:42 Hct 46.9 % (36-47) 03/10/24 12:42 MCV 104.7 fl (85-98) H 03/10/24 12:42 MCH 34.6 pg (27-33) H 03/10/24 12:42 MCHC 33.0 g/dL (30-55) 03/10/24 12:42 RDW 12.4 % (12.1-15.1) 03/10/24 12:42 Plt Count 333 10^3/cmm (157-399) 03/10/24 12:42 MPV 11.1 fL (7.4-10.4) H 03/10/24 12:42 Neut % (Auto) 75.1 % 03/10/24 12:42 Lymph % (Auto) 15.6 % 03/10/24 12:42 Dukes % (Auto) 8.5 % 03/10/24 12:42 Eos % (Auto) 0.0 % 03/10/24 12:42 Baso % (Auto) 0.2 % 03/10/24 12:42 Neut # (Auto) 10.65 10^3/uL (1.8-7.7) H 03/10/24 12:42 Lymph # (Auto) 2.2 10^3/uL (0.8-4.8) 03/10/24 12:42 Dukes # (Auto) 1.2 10^3/uL (0.2-0.9) H 03/10/24 12:42 Eos # (Auto) 0.0 10^3/uL (0.0-0.8) 03/10/24 12:42 Baso # (Auto) 0.0 10^3/uL (0.0-0.1) 03/10/24 12:42 Nucleated RBC % (auto) 0 % 03/10/24 12:42 Nucleated RBCs # 0.0 /100WBC 03/10/24 12:42 Specimen Type Arterial 03/10/24 15:24 Sample Site Brachial, right 03/10/24 15:24 ABG pH 7.50 (7.35-7.45) H 03/10/24 15:24 ABG pCO2 21.4 mmHg (35-45) L 03/10/24 15: ABG pO2 93.1 mmHg (80.0-100.0) 03/10/24 15:24 ABG PO2/FiO2 Ratio 443 03/10/24 15: ABG HCO3 16.8 mmol/L (22-26) L 03/10/24 15:24 ABG O2 Saturation 98.5 03/10/24 15:24 ABG Base Excess -4.0 mmol/L (-2.0-2.0) L 03/10/24 15:24 Nathan Test N/a 03/10/24 15:24 A-a O2 Gradient 3.5 mmHg (5-10) L 03/10/24 15:24 Hematocrit 46.2 % (37-47) 03/10/24 15:24 Hgb O2 Saturation 95.1 % (95-100) 03/10/24 15:24 Carboxyhemoglobin 2.4 %THgb (0.4-20.1) 03/10/24 15:24 Methemoglobin 1.1 % (0.4-1.5) 03/10/24 15:24 Total Hemoglobin 15.1 g/dL (12-16) 03/10/24 15:24 Sodium 140.0 mmol/L (131-143) 03/10/24 15:24 Potassium 3.2 mmol/L (3.5-5.0) L 03/10/24 15:24 Glucose 101.0 mg/dL (70-115) 03/10/24 15:24 Ionized Calcium 1.2 mmol/L (1.1-1.4) 03/10/24 15:24 O2 Delivery Device Room air 03/10/24 15:24 FiO2 21.0 % 03/10/24 15:24 Biomedical Engineering Professor ID Amh 03/10/24 15:24 Sodium 141 mmol/L (136-145) 03/10/24 12:42 Potassium 3.9 mmol/L (3.5-5.1) 03/10/24 12:42 Chloride 103 mmol/L (98-107) 03/10/24 12:42 Carbon Dioxide 21 mmol/L (22-29) L 03/10/24 12:42 Anion Gap 20.9 (5-19) H 03/10/24 12:42 BUN 19 mg/dL (8-23) 03/10/24 12:42 Creatinine 0.7 mg/dL (0.5-0.9) 03/10/24 12:42 GFR Calculation 83.7 mL/min (90-130) L 03/10/24 12:42 Glucose 99 mg/dL (65-115) 03/10/24 12:42 Calculated Osmolality 294 mOsm/kg (285-295) 03/10/24 12:42 Calcium 9.4 mg/dL (8.5-10.5) 03/10/24 12:42 Total Bilirubin 0.5 mg/dL (0.15-1.2) 03/10/24 12:42 AST 15 U/L (0-32) 03/10/24 12:42 ALT 8 U/L (0-33) 03/10/24 12:42 Alkaline Phosphatase 104 U/L (35-105) 03/10/24 12:42 Troponin T Baseline < 6 ng/L (0-10) 03/10/24 12:42 Troponin T 120 Minute 6.54 ng/L (0-10) 03/10/24 15:15 Delta Troponin T 0.84398 ABS# (0-10) 03/10/24 15:15 Total Protein 7.3 g/dL (6.6-8.7) 03/10/24 12:42 Albumin 4.8 g/dL (3.5-5.2) 03/10/24 12:42 Globulin 2.5 g/dL (1.3-4.6) 03/10/24 12:42 Urine Color Yellow (Yellow) 03/10/24 15:04 Urine Appearance Clear (CLEAR) 03/10/24 15:04 Urine pH 6.5 (5-7) 03/10/24 15:04 Ur Specific [place] 1.010 (1.005-1.030) 03/10/24 15:04 Urine Protein Neg (Negative) 03/10/24 15:04 Urine Glucose (UA) Norm (Normal) 03/10/24 15:04 Urine Ketones Negative (Negative) 03/10/24 15:04 Urine Blood Trace (Negative) H 03/10/24 15:04 Urine Nitrate Negative (Negative) 03/10/24 15:04 Urine Bilirubin Neg (Negative) 03/10/24 15:04 Urine Urobilinogen Norm mg/dL (Negative) 03/10/24 15:04 Ur Leukocyte Esterase Negative (Negative) 03/10/24 15:04 Urine RBC 0-4 /hpf (0-2) H 03/10/24 15:04 Urine WBC 0-4 /hpf (0-5) H 03/10/24 15:04 Ur Squamous Epith Cells 0-4 /hpf (0-5) H 03/10/24 15:04 Ur Transition Epith Cell Rare /hpf 03/10/24 15:04 Amorphous Sediment Not Reportable 03/10/24 15:04 Urine Bacteria None /hpf (NONE) 03/10/24 15:04 Urine Mucus None /hpf 03/10/24 15:04 All radiology interpretation(s) finalized by discharge Discharge Plan Discharge Patient Disposition: Home Clinical Impression: HTN (hypertension), Hyperventilation Condition: Stable Prescriptions: New Toprol XL 50 mg tablet extended release 24 hr 50 mg PO DAILY Qty: 30 0RF telmisartan 80 mg tablet 80 mg PO DAILY Qty: 30 0RF buspirone 7.5 mg tablet 7.5 mg PO BID Qty: 60 0RF amlodipine 5 mg tablet 5 mg PO DAILY Qty: 30 0RF Discontinued hydralazine 10 mg tablet PO metoprolol tartrate 25 mg tablet 25 mg PO DAILY 90 Days Qty: 90 2RF telmisartan 40 mg tablet 40 mg PO DAILY Qty: 30 5RF No Action cyanocobalamin (vitamin B-12) 1,000 mcg/mL solution 1,000 mcg SUBCUT ONCE Qty: 1 0RF baclofen 5 mg tablet 5 mg PO TID aspirin 81 mg tablet,chewable 81 mg PO DAILY acetaminophen 650 mg/20.3 mL solution 650 mg PO Q6H PRN cholestyramine (with sugar) 4 gram powder 4 g PO DAILY Qty: 378 6RF Rx Instructions: administer w/meal; avoid other meds within 1hr before or 4-6hr after dose atorvastatin 40 mg tablet 40 mg PO DAILY 90 Days Qty: 90 2RF gabapentin 300 mg capsule 300 mg PO Q8H 90 Days Qty: 270 2RF solifenacin [Vesicare] 5 mg tablet 5 mg PO DAILY 30 Days Qty: 30 1RF meloxicam 7.5 mg tablet 7.5 mg PO DAILY 30 Days Qty: 60 0RF cholecalciferol (vitamin D3) 1,250 mcg (50,000 unit) capsule 50,000 unit PO .weekly 30 Days Qty: 4 2RF pantoprazole 40 mg tablet,delayed release (DR/EC) 40 mg PO BID Qty: 180 1RF Rx Instructions: 340 b levocetirizine [Xyzal] 5 mg tablet 5 mg PO .nightly PRN (Reason: allergy symptoms) 90 Days Qty: 90 1RF multivitamin Tablet 1 tab PO DAILY Discharge Orders: Discharge ED (Routine); Ordered 03/10/24 Ordered By: Roderick Murillo Referrals: ADELAIDA Mario, [facility] [Primary Care Provider] - Discharge Diet: Usual diet Discharge Activity: Increase activity as tolerated Patient Instructions: Opioid Safety, Pain Management Activity Restrictions/Additional Instructions: Thank you for choosing [facility] for your healthcare needs today. It is very important that you follow up as instructed or that you return to the Emergency Department should you have concerns or if your condition changes or worsens in any way. You were seen today for complaints of elevated blood pressure. Your blood pressure improved and then worsened again when you were noted to have an anxiety attack with hyperventilation. Recommend you stop the hydralazine change from metoprolol to tartrate to metoprolol succinate 50 mg once daily. Additionally start amlodipine 5 mg once daily and increase telmisartan to 80 mg daily. Additionally to help with anxiety recommend he start BuSpar 7.5 mg 1 twice daily. Follow-up with your primary care doctor within the next week to reevaluate your blood pressure Coding Level of Care Code ED Assembly Line Worker for Jani Mcintosh NIH stroke score NIHSS Level Of Consciousness - 1a: 0 Level Of Consciousness Questions - 1b: Both Correct Level Of Consciousness Commands - 1c: Both Correct Best Gaze - 2: Normal Visual Jean-Baptiste - 3: No Visual Loss Facial Palsy - 4: Normal Motor Arm Right - 5: No Drift Motor Arm Left - 5: No Drift Motor Leg Right - 6: No Drift Motor Leg Left - 6: No Drift Limb Ataxia - 7: Absent Sensory - 8: Normal Best Language - 9: No Aphasia Dysarthia - 10: Normal Extinction And Inattention - 11: 0 Score Total Score: 0
[2024-03-10] MEDS: amlodipine 10 mg Tablet PO (14:52)
[2024-03-10] MEDS: hyDRALAzine 20 mg/mL INJ 1 mL IVP (14:52)
--- NOTE | 2024-03-10 15:22 | PC.NURSE ---
THIS NURSE WAS NOTIFIED BY LAB THAT PT WAS COMPLAINING OF A SEVERE HEADACHE. UPON ENTERING ROOM, PT WAS CRYING AND STATING MY HEAD HURTS SO BAD. PT WAS HYPERVENTILATING UPON ASSESSMENT. PT BLOOD PRESSURE WAS CHECKED ON THE AUTOMATIC MONITOR AND IT WAS 237/122. THIS NURSE NOTIFIED DR. BENJAMIN. VERBAL ORDERS FOR A MANUAL BLOOD PRESSURE. MANUAL BLOOD PRESSURE 190/100. MD NOTIFIED. PT DENIED ANY BLURRED VISION AND STATED HEAD PAIN HAD GOTTEN A LITTLE BETTER.
[2024-03-10 15:36] LABS: ABG PCO2 21.4 mmHg (35-45); Alveolar-Arterial Oxygen Gradi 3.5 mmHg (5-10); Arterial Blood Gas Hematocrit 46.2 % (37-47); Blood Gas Operator Identificat AMH; Blood Gas Sample Site Brachial, right; Blood Gas Sample Type Arterial; Carboxyhemoglobin 2.4 %THgb (0.4-20.1); HCO3 ABG 16.8 mmol/L (22-26); HGB O2 Sat 95.1 % (95-100); Ionized Calcium Level - ABG 1.2 mmol/L (1.1-1.4); Methemoglobin 1.1 % (0.4-1.5); Oxygen Device ROOM AIR; Oxygen Saturation ABG 98.5; PO2 ABG 93.1 mmHg (80.0-100.0); PO2 FiO2 Ratio Arterial Blood 443; Potassium Level - ABG 3.2 mmol/L (3.5-5.0); Total Hemoglobin 15.1 g/dL (12-16)
[2024-03-10] MEDS: LORazepam 2 mg/mL INJ 1 mL 1 MG IVP (15:38)
[2024-03-10 15:40] LABS: Bilirubin Urine Neg (Negative); Blood Urine Trace (Negative); Glucose Urine UA Norm (Normal); Ketones Urine Negative (Negative); Nitrate Urine Negative (Negative); Protein Urine Neg (Negative); Urine Appearance Clear (CLEAR); Urine Color Yellow (Yellow); Urobilinogen Urine Norm (Negative); pH Urine 6.5 (5-7)
[2024-03-10 15:41] LABS: Add Urine Microscopic? YES; Leukocyte Esterase Urine Negative (Negative)
[2024-03-10 15:45] LABS: Add Urine Culture? No; RBC Urine 0-4 /hpf (0-2); Squamous Epithelial Cell Urine 0-4 /hpf (0-5); Transitional Epi Cells Urine RARE /hpf; WBC Urine 0-4 /hpf (0-5)
[2024-03-10 15:57] LABS: Troponin 5 2HR 6.54 ng/L (0-10); Troponin 5 2HR Delta 0.54001 ABS# (0-10)
--- NOTE | 2024-03-10 17:12 | PC.NURSE ---
AFTER PT DISCHARGED, PT SON APPROACHED THE REGISTRATION DESK REQUESTING TO SPEAK TO SOMEONE REGARDING THE PT CARE. THIS NURSE WENT TO SPEAK TO THE FAMILY. PT SON WAS VERBALIZING CONCERN OF PT BLOOD PRESSURE. THIS NURSE EDUCATED PT SON AND PT AGAIN THAT THE PT BLOOD PRESSURE WAS STABLE AFTER THE MEDICATIONS GIVEN AND PT WAS PRESCRIBED NEW MEDICATIONS TO START TO HELP MANAGE THE BLOOD PRESSURE. PT WAS ALSO EDUCATED TO FOLLOW UP WITH PRIMARY CARE DOCTOR SOON POSSIBLE TO SEE IF THE MEDICATION PRESCRIBED IS WORKING OR IF THERE NEEDS TO BE A CHANGE. PT SON ASKED THIS NURSE I WANT TO KNOW WHO IS LIABLE IF SOMETHING HAPPENS. THIS NURSE EDUCATED THE PT SON AND PT THAT IF SOMETHING WAS TO HAPPEN AND THERE WAS AN EMERGENT NEED FOR HELP WITH PT BLOOD PRESSURE, THAT THEY WERE WELCOME TO COME AND BE SEEN AGAIN. PT SON STATED I WANT IT TO BE FIXED NOW. WE WERE JUST SEEN FOR HIGH BLOOD PRESSURE IN [place] AND THE PILLS THEY GAVE US DIDN'T WORK. WHAT ARE WE SUPPOSED TO DO IF THESE DON'T WORK? WE LIVE 1.5 HOURS AWAY. THIS NURSE EDUCATED SON THAT WE WERE MORE THAN HAPPY TO SEE PT AGAIN IF HE DID NOT THINK SHE SHOULD GO HOME. PT SON AND PT WERE EDUCATED AGAIN THAT THE PROVIDER FELT THE PT WAS STABLE BASED ON VITAL SIGNS TO GO HOME AND START NEW MEDICATIONS. SON AND PT WERE BOTH ANGRY AT THIS NURSE AND TOLD THIS NURSE TO GO TO [facility]. WE DON'T WANT YOUR FUCKING HELP. THIS NURSE TOLD PT AND SON THAT THEY ARE MORE THAN WELCOME TO CHECK BACK IN IF THEY FEEL LIKE THE PT IS NOT BEING TAKEN CARE OF AND THAT WE ARE MORE THAN HAPPY TO SEE HER AGAIN. PT TOLD THIS NURSE I WILL NOT FUCKING COME BACK HERE AGAIN. GO TO [facility].
== END 2024-03-10 16:40 | disposition home or self-care (01) ==
PROVIDERS: Emergency Provider Family Medicine; PCP Nurse Practitioner Family
DX: I10 Essential (primary) hypertension (principal); R06.4 Hyperventilation; Z79.82 Long term (current) use of aspirin; Z72.0 Tobacco use; J44.9 Chronic obstructive pulmonary disease, unspecified; E78.2 Mixed hyperlipidemia
CPT/HCPCS: 36415; 36600; 70450; 71045; 80051; 80053; 81001; 82330; 82805; 84484; 85025; 93005; 96374; 96375; 99285; J0360; J2060

== ENCOUNTER 2024-05-31 08:54 | Outpatient (CLI) | payer MEDICARE, MEDICAID, SELFPAY ==
--- NOTE | 2024-05-31 09:00 | MM_ITS ---
WS: [id number] BILATERAL SCREENING DIGITAL TOMOSYNTHESIS MAMMOGRAM WITH CAD HISTORY: SCREENING COMPARISON: None available. Bilateral CC and MLO views with tomosynthesis and synthetic mammography submitted. Computer aided det ection analyzed. Breast composition: The breasts are extremely dense, which lowers the sensitivity of mammography. No suspicious masses, microcalcifications or architectural distortion. Coarse calcification 12:00 LEFT b reast is probably a calcified fibroadenoma. There are additional scattered calcifications. No cluster ing of calcifications. MM/MM scr tomosynthesis [id number] IMPRESSION: BI-RADS: 2 - Benign FOLLOW UP: 1 Year Follow-up
== END 2024-05-31 08:55 | disposition home or self-care (01) ==
PROVIDERS: PCP Nurse Practitioner Family; Visit Provider Nurse Practitioner Family
DX: Z12.31 Encounter for screening mammogram for malignant neoplasm of breast (principal); R92.333 Mammographic heterogeneous density, bilateral breasts; R92.1 Mammographic calcification found on diagnostic imaging of breast
CPT/HCPCS: 77063; 77067

== ENCOUNTER 2024-06-22 06:00 | Outpatient (RCR) | payer MEDICARE, MEDICAID, SELFPAY | END 2024-06-27 23:59 | disposition home or self-care (01) | LOC: WPT 06:00 | PROVIDERS: PCP Nurse Practitioner Family; Visit Provider Nurse Practitioner Family | DX: M51.369 Other intervertebral disc degeneration, lumbar region without mention of lumbar back pain or lower extremity pain (principal) | CPT/HCPCS: 97110; 97112; 97161; 97530 ==

== ENCOUNTER 2024-06-28 06:30 | Outpatient (RCR) | payer MEDICARE, MEDICAID, SELFPAY | END 2024-07-28 23:59 | disposition home or self-care (01) | LOC: WPT 06:30 | PROVIDERS: PCP Nurse Practitioner Family; Visit Provider Nurse Practitioner Family | DX: M51.369 Other intervertebral disc degeneration, lumbar region without mention of lumbar back pain or lower extremity pain (principal) | CPT/HCPCS: 97110; 97112; 97530 ==

== ENCOUNTER → 2024-11-16 12:23 | Outpatient (BNVA) | payer MEDICARE, MEDICAID, SELFPAY | PROVIDERS: PCP Nurse Practitioner Family; Visit Provider Nurse Practitioner Family | DX: E55.9 Vitamin D deficiency, unspecified (principal); I10 Essential (primary) hypertension; E78.2 Mixed hyperlipidemia; N02.9 Recurrent and persistent hematuria with unspecified morphologic changes; D51.9 Vitamin B12 deficiency anemia, unspecified; D53.9 Nutritional anemia, unspecified; J44.1 Chronic obstructive pulmonary disease with (acute) exacerbation; Z79.899 Other long term (current) drug therapy; R60.9 Edema, unspecified | CPT/HCPCS: 80053; 80061; 81003; 82306; 82607; 82728; 82746; 83036; 83550; 83880; 83921; 84443; 85025; 87086 ==